=== PATIENT | male | born 1995 | race Caucasian/White ===

== ENCOUNTER 2017-09-29 21:12 | Emergency (ER) | payer SELFPAY ==
[2017-09-29] MEDS ORDERED: LIDOCAINE 2% INJ (20 MG/ML) 20 ML MDV INJ ONE (23:24)
[2017-09-30] MEDS ORDERED: CEPHALEXIN 500 MG CAPSULE PO ONE (00:29)
--- NOTE | 2017-09-30 00:29 | ER Document Report ---
ED General - General Chief Complaint: Eye Pain Stated Complaint: LEFT EYE,RIGHT TOE PAIN Time Seen by Provider: 09/29/17 23:21 Notes: Patient is 22-year-old male who presents with 2 different complaints. First complaint is of a stye on the left eye. He says his thigh has been there over left lower lid for 2 months. Has not seen an eye doctor. Since his continue to irritate him and therefore is come to the ER. Patient's second complaint is of a ingrown toenail on the right big toe. Patient says he does have a history of surgery on this time and therefore the toes has a somewhat swollen appearance however the medial aspect of the toe has soreness and has swelling over the paronychia and the patient has been actually picking at this area to try to release the toenail. TRAVEL OUTSIDE OF THE [place] IN LAST 30 DAYS: No - Related Data Allergies/Adverse Reactions: Penicillins Allergy (Verified 09/29/17 21:18) Past Medical History - Social History Smoking Status: Unknown if Ever Smoked Frequency of alcohol use: None Drug Abuse: None Family History: Reviewed & Not Pertinent Patient has suicidal ideation: No Patient has homicidal ideation: No Renal/ Medical History: Denies: Hx Peritoneal Dialysis Review of Systems - Review of Systems Notes: My Normal Review Basic REVIEW OF SYSTEMS: CONSTITUTIONAL : Denies fever, chills, or sweats. Denies recent illness. EENT: Stye on left eye. CARDIOVASCULAR: Denies chest pain. RESPIRATORY: Denies cough, cold, or chest congestion. Denies shortness of breath, difficulty breathing, or wheezing. GASTROINTESTINAL: Denies abdominal pain. Denies nausea, vomiting, or diarrhea. Denies constipation. Last BM: MUSCULOSKELETAL: Right toe pain. SKIN: Denies rash or skin lesions. NEUROLOGICAL: Denies altered mental status or loss of consciousness. Denies headache. Denies weakness or paralysis or loss of use of either side. Denies problems with gait or speech. Denies sensory or motor loss. ALL OTHER SYSTEMS REVIEWED AND NEGATIVE. Physical Exam - Vital signs Vitals: Temp Pulse Resp BP Pulse Ox 98.1 F 80 18 125/65 98 09/29/17 21:18 09/29/17 21:18 09/29/17 21:18 09/29/17 21:18 09/29/17 21:18 - Notes Notes: General Appearance: Well nourished, alert, cooperative, no acute distress, no obvious discomfort. Well-appearing. Vitals: reviewed, See vital signs table. Head: no swelling or tenderness to the head Eyes: PERRL, EOMI, Conjuctiva clear. Patient has a obvious stye over the left lower eyelid. He has a hard bump just below the eyelashes themselves. The top of the bump is fluctuant. There is no significant redness or signs of infection so she with this. Mouth: No decreasd moisture Throat: No tonsillar inflammation, No airway obstruction, No lymphadenopathy Neck: Supple, no neck tenderness, No thyromegaly Lungs: No wheezing, No rales, No rhonci, No accessory muscle use, good air exchange bilaterally. Heart: Normal rate, Regular rythm, No murmur, no rub Abdomen: Normal BS, soft, No rigidity, No abdominal tenderness, No guarding, no rebound, no abdominal masses, no organomegaly Extremities: strength 5/5 in all extremities, good pulses in all extremities, patient has a ingrown right toenail with inflammation around the medial paronychia from where the patient has been picking at the area. Skin: warm, dry, appropriate color, no rash Neuro: speech clear, oriented x 3, normal affect, responds appropriately to questions. Course - Re-evaluation Re-evalutation: 09/30/17 06:48 Patient will be discharged home. I did do a needle aspiration of the area of the stye. Small amount of purulent drainage was expressed but the remainder of the study is firm and hard. Patient will need to see. For excision of this area. Patient's does have what appears to be a right ingrown toenail. I did do a wedge resection of this toenail. Discussed with the patient some relief. I will place him on the antibiotic being that he has been picking at the paronychia and appears to possibly have some mild infection associated with it. Encouraged him return to ER if he opts redness or swelling of the toe or eyelid or she feels unwell. Patient agrees with plan will be discharged home. I will refer him to ophthalmology. Dictation of this chart was performed using voice recognition software; therefore, there may be some unintended grammatical errors. 09/30/17 06:50 - Vital Signs Vital signs: Temp Pulse Resp BP Pulse Ox 98.1 F 74 18 122/78 99 09/29/17 21:18 09/30/17 00:37 09/30/17 00:37 09/30/17 00:37 09/30/17 00:37 Discharge - Discharge Clinical Impression: Ingrown toenail Stye external Qualifiers: Laterality: left Eyelid: lower Qualified Code(s): H00.015 - Hordeolum externum left lower eyelid Condition: Good Disposition: HOME, SELF-CARE Additional Instructions: Please return to the ER immediately if you develop worsening swelling or redness to your toe or eye lid. You need to see an ophthamologist about your eye lid. You will most likely need a procedure to have the stye removed being the it has been there for over [address] Cruz, ophthamologist for a close follow up appointment. Prescriptions: Cephalexin Monohydrate [Keflex 500 mg Capsule] 500 mg PO Q6H 7 Days capsule Forms: Return to Work Referrals: CHIQUIS CRUZ MD [ACTIVE STAFF] - Follow up tomorrow
[2017-09-30 00:38] VITALS: BP 122/78
== END 2017-09-30 00:37 | disposition home or self-care (01) ==
LOC: ER 21:12
PROC: 089RXZZ Drainage of Left Lower Eyelid, External Approach (ICD-10-PCS; principal; 2017-09-29)
PROC: 0HBRXZZ Excision of Toe Nail, External Approach (ICD-10-PCS; 2017-09-29)
DX: H00.015 Hordeolum externum left lower eyelid (principal); L60.0 Ingrowing nail; H57.12 Ocular pain, left eye; M79.674 Pain in right toe(s)
CPT/HCPCS: 99283; 67415; 11765; J3490